=== PATIENT | male | born 1960 | race Caucasian/White ===

== ENCOUNTER 2016-09-01 06:17 | Day surgery (SDC) | payer BC ==
--- NOTE | 2016-08-12 08:06 | HP ---
ADMITTING HISTORY AND PHYSICAL: DATE OF ADMISSION: 09/01/16 ADMITTING DIAGNOSES: 1. Hematuria. 2. Bladder lesion. PLANNED PROCEDURE: Cystoscopy, transurethral resection of bladder lesion, possible ureteral stent insertion (laterality to be determined intraoperatively) . SURGEON: Dr. Self. ADMITTING HISTORY AND PHYSICAL: Dmitri Troy is a 55-year-old chronic smoker, who had initially been evaluated last year and had been noted to have abnormality involving the floor of the bladder and area of the trigone. He had undergone transurethral resection at that time and pathology had been benign with no evidence of malignancy. Recent cystoscopy revealed marked polypoid changes involving the entire trigone and some of these appear suspicious for neoplasm. He is now being brought in for repeat transurethral resection of the bladder lesions. Because of the proximity of these abnormalities to the trigone, he may require temporary stent insertion. PAST MEDICAL HISTORY: Significant for: 1. Chronic smoking. 2. Heartburn. MEDICATIONS ON ADMISSION: Prilosec 1 tablet daily. ALLERGIES: No definite allergies (questionable allergy to KEFLEX). PHYSICAL EXAMINATION GENERAL: Reveals a pleasant healthy-appearing, middle-aged gentleman. VITAL SIGNS: Blood pressure is 140/98, pulse 76 per minute, oxygen saturation 98% on room air, blood pressure was rechecked and was 140/90. LUNGS: Clear bilaterally. CARDIOVASCULAR: Regular rate and rhythm, S1 and S2. ABDOMEN: Soft without masses. IMPRESSION: A 55-year-old chronic smoker with above described abnormality involving the bladder. PLAN: Planned procedure is transurethral resection of bladder lesion and possible ureteral stent insertion. CC: Dr. Lexx Kline; Dr. Kostas Self* [id number]/[facility] #: [id number] [facility]
[~2016-09-01 06:17] MED LIST: Buffered Lidocaine 1% SYRIN* 3 ML/SYR SYRINGE INTRADERM ONE
[2016-09-01] MEDS ORDERED: cefTRIAXone(*) 2 GM ADDV.VIAL IVPB ONE (06:19)
[2016-09-01] MEDS ORDERED: Sodium Citrate/Citric Acid* 15 ML UDC ONE (07:25)
[2016-09-01] MEDS ORDERED: Iohexol 180 (CONTRAST) 10 ML SDV IV ONE (07:33)
[2016-09-01] MEDS ORDERED: Phenazopyridine TAB* 100 MG ONE (07:53)
[2016-09-01] MEDS ORDERED: Propofol* 10 MG/ML 20 ML BTL IV PUSH ONE (08:01)
[2016-09-01] MEDS ORDERED: fentaNYL* 50 MCG/ML 2 ML VIAL (100 MCG VIAL) ONE ×2 (08:01→11:38)
[2016-09-01] MEDS ORDERED: Lidocaine 2% PF * 5 ML VIAL ONE (08:01)
[2016-09-01] MEDS ORDERED: oxyCODONE/Acetamin 5/325 MG* TAB PO PRN (08:25)
[2016-09-01] MEDS ORDERED: Furosemide IV* 10 MG/ML 2 ML VIAL (20 MG) ONE ×2 (08:45→09:59)
[2016-09-01] MEDS ORDERED: Lidocaine 2% JELLY* 6 ML JELLY TOPICAL ONE (09:35)
[2016-09-01] MEDS ORDERED: Tamsulosin CAP* 0.4 MG ONE (09:35)
--- NOTE | 2016-09-01 10:02 | RAD ---
INDICATION: TURP. Cystoscopy. Bilateral retrograde pyelogram and stent placement. COMPARISON: August 04, 2016 CT. TECHNIQUE: 16 seconds fluoroscopy. FINDINGS: Bilateral retrograde pyelograms. Negative for hydronephrosis. Bilateral ureteral stents placed. IMPRESSION: Procedural fluoroscopy. CPT II Codes: 6045F
[2016-09-01] MEDS ORDERED: oxyCODONE/Acetamin 5/325 MG* TAB ONE (11:38)
[2016-09-01] MEDS ORDERED: DiMENhydriNATE IV* 50 MG/ML VIAL ONE (11:39)
[2016-09-01] MEDS: fentaNYL* 50 MCG/ML 2 ML VIAL (100 MCG VIAL) IV PRN ×2 (11:42→12:19)
[2016-09-01] MEDS ORDERED: amLODIPine TAB* 5 MG PO ONE ×2 (12:00→13:15)
--- NOTE | 2016-09-01 13:45 | PN ---
Progress Note - Progress Note Note: I was asked to see the patient post-operatively for marked hypertension. The patient states that he has not seen a provider in 2-3 years and previously was diagnosed with borderline HTN. He is free of CP or SOB. He has no pain related to his OR procedure at this time. I recommended giving amlodipine 5mg x1 which helped slightly but his diastolic BP was still elevated. Another 5mg of amlodipine was given which brought his BP to 176/98 about 30min after receiving the second dose of amlodipine. At this time I feel the patient's BP is acceptable for d/c home. I have set up an appointment with Dr. Elkins for 09/03 at 1000. I have sent an Rx for amlodipine 10mg daily to [facility]. The patient understands he is to start this medication tomorrow.
[2016-09-01 13:52] VITALS: BP 172/94
--- NOTE | 2016-09-02 05:41 | OP ---
DATE OF OPERATION: 09/01/16 - [facility] DATE OF : 56 SURGEON: Kostas Self MD ANESTHESIOLOGIST: Dr. Gaxiola. ANESTHESIA: General. PRE-OPERATIVE DIAGNOSES: 1. Hematuria. 2. Bladder lesion. POST-OPERATIVE DIAGNOSES: 1. Hematuria. 2. Bladder lesion. OPERATIVE PROCEDURES: 1. Cystoscopy, transurethral resection and fulguration of bladder lesion (2 to 3 cm). 2. Bilateral retrograde pyelograms. 3. Bilateral stent insertion. COMPLICATIONS: None. POSTOPERATIVE CONDITION: Stable. STENTS USED: 7-Icelandic stent left ureter, 6-Icelandic stent right ureter. OPERATIVE FINDINGS: 1. Moderately enlarged prostate. 2. Raised irregular papillary changes involving floor of posterior bladder neck extending towards trigone (probably chronic inflammatory changes, less likely neoplasm). INDICATIONS: Lexx Troy is a 55-year-old gentleman who was noted to have the above-mentioned findings on office cystoscopy. DESCRIPTION OF PROCEDURE: After induction of general anesthesia, the patient was placed in dorsal lithotomy position. Sequential compression devices were in place and functioning. Initial cystoscopy revealed a normal-appearing urethra, a moderately enlarged prostate, and the above-mentioned changes extending from the posterior bladder neck towards the trigone. A guidewire was introduced into the left ureter. Retrograde pyelogram revealed no evidence of obstruction or of any persistent filling defects. A 7-Icelandic stent was introduced and positioned under fluoroscopy. This was done to prevent any injury to the ureter because the lesions were pretty much involving the entire area of the trigone. Next, the stent was placed on the right side. Once again, the retrograde pyelogram did not reveal any obstruction or any filling defects and a 6-Icelandic stent was placed on the right side. Next, attention was directed to the bladder lesions. Using a resectoscope, all of the abnormal-appearing area was carefully resected and the base was cauterized using the coagulating current. At the end of the procedure, all of the abnormal-appearing area had been removed and hemostasis appeared satisfactory with no evidence of bladder perforation. A 22-Icelandic Walter was placed for temporary bladder drainage. The patient tolerated the procedure satisfactorily and was transferred back to the recovery area in stable condition. CC: Dr. Lexx Kline* [id number]/[facility] #: [id number] [facility]
== END 2016-09-01 14:24 | disposition home or self-care (01) ==
LOC: OR 06:17
PROVIDERS: ATTEND Urology
DX: N32.9 Bladder disorder, unspecified (principal); N30.81 Other cystitis with hematuria; I97.3 Postprocedural hypertension; Z72.0 Tobacco use
CPT/HCPCS: 74420; 88305; A9270-GY; C1876; J0696; J1240; J1940; J2704; J3010

== ENCOUNTER 2019-03-20 07:56 | Day surgery (SDC) | payer BC ==
--- NOTE | 2019-03-11 12:59 | HP ---
PREOPERATIVE HISTORY AND PHYSICAL: DATE OF SURGERY/ADMISSION: 03/20/19 DATE OF OFFICE VISIT/ENCOUNTER: 03/01/19 ATTENDING SURGEON: Debbi Harris MD * (DICTATED BY SARAVANAN GREGORY) PROCEDURE: Left wrist carpal tunnel release, left long finger trigger release. HISTORY OF PRESENT ILLNESS: This is a 58-year-old male who complains of bilateral hands numbness, tingling, and pain. He has had trouble ongoing for 3 years. Symptoms have gradually gotten worse. His left hand is worse than his right. He cannot make a full fist with either hand. He works at [employer] and is having trouble doing his work sometimes. There was no specific injury. He does not have any neck pain. He has used wrist braces in the past, but they were not helpful. He also has had cortisone injections in each carpal tunnel in the past; however, the relief did not last. He is also complaining of clicking and triggering in the left long finger if he moves the finger through range of motion. This has been going on for some time. He would like to address both of these problems surgically and has consented to proceed with a left wrist carpal tunnel release and left long finger trigger release. PAST MEDICAL HISTORY: 1. GERD. 2. Kidney disease - IgA nephropathy. PAST SURGICAL HISTORY: Left shoulder Damien procedure. CURRENT MEDICATIONS: 1. Gabapentin. 2. Prilosec 20 mg daily. ALLERGIES: CIPROFLOXACIN causes nausea. FAMILY MEDICAL HISTORY: Noncontributory. SOCIAL HISTORY: The patient is employed at [employer]. He is a current smoker, less than pack per day for most of his life. He also smokes marijuana on regular occasions. He drinks alcohol on occasion. REVIEW OF SYSTEMS: Negative for general, cephalic, cardiovascular, respiratory , GI, , other musculoskeletal, integumentary, endocrine, neurologic, and hematologic symptoms. Infectious Disease: Negative for MRSA, hepatitis C, HIV. PHYSICAL EXAMINATION GENERAL: A well-developed, well-nourished 58-year-old male, in no acute distress. VITAL SIGNS: Height 6 feet tall, weight 219 pounds. Pulse rate 62, blood pressure 132/84. HEENT: Normocephalic, atraumatic. Pupils are equal, round, and reactive to light and accommodation. Extraocular movements are intact. Throat is clear. NECK: Supple. No palpable lymph nodes. PULMONARY: Lungs are clear to auscultation bilaterally. No wheezes, rales, or rhonchi. CARDIOVASCULAR: Regular rate and rhythm. S1, S2. No murmurs, rubs, or gallops. No edema. ABDOMEN: Positive bowel sounds. Soft, nontender. NEUROLOGICAL: Alert and oriented x3. Cranial nerves II through XII are intact. MUSCULOSKELETAL: On exam of his left wrist and hand, he has positive Tinel's sign at the median nerve on the left and some mild weakness with thumb abduction. He has significant tenderness of the A1 sara of his middle finger on the left and has trouble posing it into a fully flexed position. ASSESSMENT: Left carpal tunnel syndrome and left middle finger trigger finger. PLAN: The patient is scheduled to undergo a left wrist carpal tunnel release and a left long finger trigger release with Dr. Harris on 03/20/19. He will return to the office 10 days postop for followup and suture removal. A prescription for tramadol was e-scribed to the patient's pharmacy for postoperative pain management. SARAVANAN GREGORY [id number]/[facility] #: [id number] [facility]
[~2019-03-20 07:56] MED LIST changes: +Buffered Lidocaine 1% SYRIN* 1 ML/SYRINGE INTRADERM ONE; -Buffered Lidocaine 1% SYRIN* 3 ML/SYR SYRINGE INTRADERM ONE; +Famotidine IV* 10 MG/ML 2 ML (20 mg) IV ONE; +Lactated Ringers 1000 ML Bag* 1,000 ML IV SCH
[2019-03-20] MEDS ORDERED: Famotidine IV* 10 MG/ML 2 ML (20 mg) ONE (08:19)
[2019-03-20] MEDS ORDERED: Midazolam* 1 MG/ML 5 ML VIAL (5 MG) ONE (09:04)
[2019-03-20] MEDS ORDERED: Lidocaine 1% INJ* 10 MG/ML 30 ML SDV ONE (09:27)
[2019-03-20] MEDS ORDERED: Ketorolac INJ* 30 MG/ML 1 ML VIAL ONE (09:38)
[2019-03-20] MEDS ORDERED: Lidocaine 2% PF * 5 ML VIAL ONE (09:38)
[2019-03-20] MEDS ORDERED: Propofol* 10 MG/ML 20 ML BTL ONE (09:38)
[2019-03-20] MEDS ORDERED: oxyCODONE TAB* 5 MG TAB PO PRN (09:54)
[2019-03-20] MEDS ORDERED: Acetaminophen TAB* 325 MG PO PRN (09:54)
[2019-03-20 10:27] VITALS: BP 163/97
--- NOTE | 2019-03-20 12:17 | OP ---
DATE OF OPERATION: 03/20/19 [facility] DATE OF : 56 SURGEON: Debbi Harris MD. ANIMAL PHYSIOLOGY TEACHER: SARAVANAN Sandhu ANESTHESIA: Local MAC. PRE-OP DIAGNOSES: Left long finger trigger finger and left carpal tunnel syndrome. POST-OP DIAGNOSES: Left long finger trigger finger and left carpal tunnel syndrome OPERATIVE PROCEDURE: Left long finger trigger release and left carpal tunnel release. ESTIMATED BLOOD LOSS: Zero. TOURNIQUET TIME: About 15 minutes. INDICATIONS FOR PROCEDURE: Dmitri is a 58-year-old man who has triggering and locking of his left middle finger as well as numbness and tingling in his left median nerve distribution. He presents for trigger finger release and carpal tunnel release. DESCRIPTION OF PROCEDURE: The patient was brought to the operating room, was given a sedation anesthetic and a local infiltration of 10 cc of 1% plain lidocaine in the palm of his left hand. Additional 4 cc was used during the procedure. Skin of his left hand and forearm was prepped and draped in usual sterile fashion. The hand and forearm were exsanguinated and tourniquet elevated to 250 mmHg. A transverse incision was made centered over the A1 sara of the left long finger. We dissected through the subcutaneous tissue down to the sara, sara was incised longitudinally completely releasing the flexor tendons, which had a very mild amount of abrasion on them, but no tenosynovitis. The wound was irrigated and the skin edges reapproximated with 4 -0 nylon suture. Next a longitudinal incision was made in the palm in line with the ring finger. We dissected through the subcutaneous tissue down to the transverse carpal ligament. The ligament was divided sharply with the knife and then more proximally with the scissors. The nerve was dissected free from the surrounding tissue and there was an area of moderate compression at the midportion of the ligament. The wound was irrigated and the skin edges reapproximated with 4-0 nylon suture. The wound was dressed with Xeroform, 4x4 , Webril and Jorge wrap. The patient tolerated the procedure well and was brought to the recovery room in good condition. [id number]/[facility] #: [id number] [facility]
== END 2019-03-20 10:46 | disposition home or self-care (01) ==
LOC: OREAST 07:56
PROVIDERS: ATTEND Orthopaedic Surgery
PROC: 01N50ZZ Release Median Nerve, Open Approach (ICD-10-PCS; principal; 2019-03-20 09:45)
PROC: 0LN80ZZ Release Left Hand Tendon, Open Approach (ICD-10-PCS; 2019-03-20 09:45)
DX: G56.02 Carpal tunnel syndrome, left upper limb (principal); M65.332 Trigger finger, left middle finger; G47.33 Obstructive sleep apnea (adult) (pediatric); K21.9 Gastro-esophageal reflux disease without esophagitis; F12.90 Cannabis use, unspecified, uncomplicated; F17.210 Nicotine dependence, cigarettes, uncomplicated; N02.8 Recurrent and persistent hematuria with other morphologic changes
CPT/HCPCS: J1885; J2250; J2704

== ENCOUNTER 2019-04-24 08:22 | Day surgery (SDC) | payer BC ==
[~2019-04-24 08:22] MED LIST changes: +Dexamethasone IV* 4 MG/ML 1 ML (4 MG) IV SLOW PU ONE; -Famotidine IV* 10 MG/ML 2 ML (20 mg) IV ONE
[2019-04-24] MEDS ORDERED: Dexamethasone IV* 4 MG/ML 1 ML (4 MG) ONE (08:36)
[2019-04-24] MEDS ORDERED: Lidocaine 1% INJ* 10 MG/ML 30 ML SDV ONE (08:49)
[2019-04-24] MEDS ORDERED: Midazolam* 1 MG/ML 5 ML VIAL (5 MG) ONE (09:29)
[2019-04-24] MEDS ORDERED: Ondansetron INJ* 2 MG/ML VIAL ONE (09:29)
[2019-04-24] MEDS ORDERED: Ketorolac INJ* 30 MG/ML 1 ML VIAL ONE (09:29)
[2019-04-24] MEDS ORDERED: Propofol* 10 MG/ML 20 ML BTL ONE (09:29)
[2019-04-24] MEDS ORDERED: fentaNYL* 50 MCG/ML 2 ML VIAL (100 MCG VIAL) ONE (09:29)
[2019-04-24] MEDS ORDERED: Naloxone* 0.4 MG/ML 1 ML VIAL IV PRN (10:19)
[2019-04-24 10:46] VITALS: BP 149/94
--- NOTE | 2019-04-24 16:48 | OP ---
DATE OF OPERATION: 04/24/19 [facility] DATE OF : 56 SURGEON: Dr. Harris. DIALYSIS NURSE: SARAVANAN Sandhu. ANESTHESIA: Local MAC. PRE-OP DIAGNOSES: Carpal tunnel syndrome on the right and right middle finger trigger finger. POST-OP DIAGNOSES: Carpal tunnel syndrome on the right and right middle finger trigger finger. OPERATIVE PROCEDURES: Right middle finger trigger release and right carpal tunnel release. ESTIMATED BLOOD LOSS: Zero. TOURNIQUET TIME: Approximately 15 minutes. INDICATION FOR PROCEDURE: Dmitri is a 58-year-old man with triggering and locking of his right index finger and carpal tunnel on the right. He has had the same problem on the left and had successful treatment with surgery. He presents for right carpal tunnel release and right middle finger trigger release. DESCRIPTION OF PROCEDURE: The patient was brought to the operating room and was given a sedation anesthetic and a local infiltration of 10 cc of 1% plain lidocaine in the palm of his right hand. The skin of his right hand and forearm was prepped and draped in the usual sterile fashion. The hand and forearm were exsanguinated and the tourniquet elevated to 250 mmHg. A transverse incision was made centered over the A1 sara of the right middle finger. We dissected bluntly through the subcutaneous tissue down to the sara. There was a small cystic mass on the sara and this was removed and sent for pathology. The sara was then incised longitudinally, completely releasing the flexor tendons which had a mild amount of abrasion. The wound was irrigated and the skin edges were reapproximated with 4-0 nylon suture. Next, a longitudinal incision was made in the palm in line with the ring finger and we dissected through the subcutaneous tissue down to the transverse carpal ligament. The ligament was divided sharply with the knife and then more proximally with the scissors. The nerve was dissected free from the surrounding tissue and there was an area of significant compression at the midportion of the ligament. The wound was irrigated and the skin edges were reapproximated with 4-0 nylon suture. The wounds were dressed with Xeroform, 4x4, Webril, and an Jorge wrap. The patient tolerated the procedure well and was brought to the recovery room in good condition. [id number]/[facility] #: [id number] [facility]
== END 2019-04-24 10:44 | disposition home or self-care (01) ==
LOC: OREAST 08:22
PROVIDERS: ATTEND Orthopaedic Surgery
DX: G56.01 Carpal tunnel syndrome, right upper limb (principal); M65.331 Trigger finger, right middle finger; I10 Essential (primary) hypertension; G47.33 Obstructive sleep apnea (adult) (pediatric); K21.9 Gastro-esophageal reflux disease without esophagitis; N02.8 Recurrent and persistent hematuria with other morphologic changes; F17.210 Nicotine dependence, cigarettes, uncomplicated
CPT/HCPCS: 88304; J1100; J1885; J2250; J2405; J2704; J3010